=== PATIENT | male | born 1945 | race Caucasian/White ===

== ENCOUNTER 2018-02-09 08:42 | Day surgery (SDC) | payer MEDICARE ==
[2018-02-09] MEDS ORDERED: hydrALAzine 20 MG INJ (10:26)
[2018-02-09] MEDS ORDERED: EPHEDrine SULFATE 50 MG/5 ML SYG (11:07)
[2018-02-09] MEDS ORDERED: PROPOFOL 40 ML (11:07)
== END 2018-02-09 14:34 | disposition home or self-care (01) ==
LOC: GIL 08:42
DX: R19.4 Change in bowel habit (principal); K29.30 Chronic superficial gastritis without bleeding; K21.9 Gastro-esophageal reflux disease without esophagitis; K64.8 Other hemorrhoids; I10 Essential (primary) hypertension; E11.9 Type 2 diabetes mellitus without complications; I25.10 Atherosclerotic heart disease of native coronary artery without angina pectoris; E78.5 Hyperlipidemia, unspecified
CPT/HCPCS: 43239; 82962; 88305; 88312; 93005